=== PATIENT | female | born 1980 | race Caucasian/White ===

== ENCOUNTER 2017-07-08 03:56 | Inpatient (IN) | payer MEDICAID ==
[2017-07-08 13:06] LABS: Hematocrit 40 % (35-47); Hemoglobin 14.1 g/dl (12.0-16.0); Mean Corpuscular HGB Conc 35 g/dl (31-36); Mean Corpuscular Hemoglobin 31 pg (27-31); Mean Corpuscular Volume 90 fL (80-97); Mean Platelet Volume 9 um3 (7.4-10.4); Red Blood Count 4.49 10^6/ul (4.0-5.4); Red Cell Distribution Width 13 % (10.5-15); White Blood Count 16.1 10^3/ul (3.5-10.8)
[2017-07-08] MEDS ORDERED: Oxytocin in LR* 20 UNITS/1,000 ML BAG IVPB ONE (14:22)
[2017-07-08] MEDS ORDERED: Dibucaine 1% 28.35 GM TUBE PR PRN (15:08)
[2017-07-08] MEDS ORDERED: Misoprostol TAB* 200 MCG PR ONE (15:08)
[2017-07-08] MEDS ORDERED: RHO D Immune Globulin (HUMAN)* 300 MCG = 1,500 I.U. INJ IM ONE (15:08)
[2017-07-08] MEDS ORDERED: Glycerin ADULT SUPP PR PRN (15:08)
[2017-07-08] MEDS ORDERED: Acetaminophen TAB* 325 MG PO PRN (15:08)
[2017-07-08] MEDS ORDERED: Tetan/Diph/Pertus SYR(Tdap)* 0.5 ML SYR(BOOSTRIX) use SYR IM ONE (15:08)
[2017-07-08] MEDS ORDERED: Witch Hazel PAD* JAR TOPICAL PRN (15:08)
[2017-07-08] MEDS ORDERED: Oxytocin in LR* 20 UNITS/1,000 ML BAG IVPB SCH (16:00)
[2017-07-08] MEDS ORDERED: Simethicone TAB* 80 MG TAB.CHEW PO SCH (17:30)
[2017-07-08] MEDS: Ibuprofen TAB* 600 MG PO PRN (18:41)
[2017-07-08] MEDS: Docusate CAP* 100 MG PO SCH (20:37)
[2017-07-09] MEDS: Ibuprofen TAB* 600 MG PO PRN ×3 (06:43→20:48)
[2017-07-09 08:24] LABS: Hematocrit 28 % (35-47); Hemoglobin 9.6 g/dl (12.0-16.0); Mean Corpuscular HGB Conc 35 g/dl (31-36); Mean Corpuscular Hemoglobin 32 pg (27-31); Mean Corpuscular Volume 91 fL (80-97); Mean Platelet Volume 9 um3 (7.4-10.4); Red Blood Count 3.02 10^6/ul (4.0-5.4); Red Cell Distribution Width 13 % (10.5-15); White Blood Count 19.5 10^3/ul (3.5-10.8)
[2017-07-09] MEDS: Ferrous Gluconate TAB* 324 MG TAB PO SCH ×2 (09:09→20:48)
[2017-07-09] MEDS: Docusate CAP* 100 MG PO SCH ×3 (09:10→20:48)
[2017-07-10 09:21] VITALS: BP 110/62
[2017-07-10] MEDS: Docusate CAP* 100 MG PO SCH (09:45)
[2017-07-10] MEDS: Ferrous Gluconate TAB* 324 MG TAB PO SCH (09:45)
[2017-07-10] MEDS: Ibuprofen TAB* 600 MG PO PRN (09:49)
--- NOTE | 2017-07-10 12:15 | PTEDU ---
Patient Name: BUNNY SORENSON BUNNY SORENSON selected video: Follow Me Mum: [facility] [employer] Successful to view on 017 at 12:12:42 PM [id number]
== END 2017-07-10 13:44 | disposition home or self-care (01) | DRG 560 ==
LOC: MCHOBOUT 03:56 → MCHOB 07:14
PROVIDERS: ADMIT Midwife; ATTEND Midwife
PROC: 10E0XZZ Delivery of Products of Conception, External Approach (ICD-10-PCS; principal; 2017-07-08)
PROC: 10907ZC Drainage of Amniotic Fluid, Therapeutic from Products of Conception, Via Natural or Artificial Opening (ICD-10-PCS; 2017-07-08)
PROC: 0KQM0ZZ Repair Perineum Muscle, Open Approach (ICD-10-PCS; 2017-07-08)
DX: O48.0 Post-term pregnancy (principal); O72.1 Other immediate postpartum hemorrhage; D62 Acute posthemorrhagic anemia; O70.1 Second degree perineal laceration during delivery; O90.81 Anemia of the puerperium; Z3A.41 41 weeks gestation of pregnancy; Z37.0 Single live birth
CPT/HCPCS: 36415; 85025; 85461; 86850; 86870; 86880; 86900; 86901; A9270-GY; J2790

== ENCOUNTER 2019-05-08 21:02 | Inpatient (IN) | payer OTHER ==
--- NOTE | 2019-05-08 22:42 | HP ---
General Information - Reason for Visit PROM followed by active labor - General Information Maternal Age: 38 Grav: 2 Para: 1 SAB: 0 IEA: 0 Estimated Due Date: 05/06/19 Determined By: LMP Maternal Blood Type and Rh: O Negative - Results this Serology/RPR Result: Non-Reactive Rubella Result: Immune HBsAg Result: Negative HIV Result: Negative GBS Culture Result: Negative Past Medical History Delivery History: Hx Complicated Vaginal Delivery - hx PPH Pertinent Past Medical History: Non-Contributory Pertinent Past Surgical History: See Records - Left axilla lymph node removal Pertinent Family History: Non-Contributory - Antepartal Records Antepartal Records: Reviewed, Complicated by: - AMA, mild pyelectasis , Rh negative Review of Systems Constitutional: Uncomfortable CV Complaint: No Respiratory: Shortness of Breath: No Gastrointestinal: Normal Bowel Movement, Nausea, Vomiting Genitourinary: Leaking Fluid, No Dysuria, No Bleeding Musculoskeletal: No Epigastric Pain, Contractions Neurological: No Headache, No Visual Changes Movement: Normal Exam Allergies/Adverse Reactions: Allergies No Known Allergies Allergy (Verified 05/08/19 21:51) T-98.5, P-89, R-16, BP-114/75, O2-99% - Measurements Height: 5 ft 4 in Weight: 77.111 kg Weight in lbs: 170.237437 Body Mass Index (BMI): 29.2 Pre- Weight: 62.596 kg Weight Gained This : 32 lbs and 0 ozs - Exam Breast: Breast Exam Deferred CVA: No CVA Tenderness Extremities: No Edema Heart: Normal Rhythm/Heart Sounds HEENT: No Significant Findings Lungs: Clear Bilaterally Rectal: Rectal Exam Deferred Reflexes: DTR 2+ Thyroid: No Thyromegaly - Abdominal Exam Abdomen Exam: Non-Tender, Fundal Height Consistent with Dates - Ultrasound/Biophysical Profile Ultrasound Status: Not Done Targeted Exam Findings See L&D Outpatient Visit Provider Note for Findings: Yes Estimated Weight: 8# Cervical Exam: 4cm Effacement: 100% Station: +1 Presenting Part: Vertex Membrane Status: SROM Amniotic Fluid Evaluation: Gross Rupture Bleeding/Discharge: None EFM Findings - External Monitor Findings Baseline Heart Rate: 130 External Monitor Findings: Accelerations Present, No Pattern of Variable or Late Decelerations, Variability Moderate, Baseline Stable Contractions: Regular, Moderate, 45-90 Seconds Assessment/Plan - Assessment 38 year old at 40 2/7 weeks gestation with PROM, now in active labor, no evidence of acidemia, no evidence of chorioamnionitis - Plan Plan: Admit - Anticipate Vaginal Delivery - Date/Time of Admission Date of Admission: 05/08/19 Time of Admission: 21:17
[2019-05-09] MEDS ORDERED: Acetaminophen TAB* 325 MG PO PRN (00:33)
[2019-05-09] MEDS ORDERED: Glycerin ADULT SUPP PR PRN (00:33)
[2019-05-09] MEDS ORDERED: Witch Hazel PAD* JAR TOPICAL PRN (00:33)
[2019-05-09] MEDS ORDERED: OXYTOCIN* 10 UNITS/ML 1 ML VIAL IM ONE (00:33)
[2019-05-09] MEDS ORDERED: Dibucaine 1% 28.35 GM TUBE PR PRN (00:33)
[2019-05-09] MEDS ORDERED: Lidocaine 1% INJ* 10 MG/ML 30 ML SDV ONE (01:19)
[2019-05-09] MEDS: Ibuprofen TAB* 600 MG PO PRN ×3 (01:37→20:15)
--- NOTE | 2019-05-09 08:09 | PROCNOTE ---
[facility] OB: Delivery Note - Delivery A Date of : 05/08/19 Time of : 22:39 [place] Sex: Female Weight at : 3.62 kg Score 1 Minute: 8 Score 5 Minutes: 9 Gestational Age in Weeks and Days at Delivery: 40 Weeks and 2 Days Delivery Method: Spontaneous Vaginal Labor: Spontaneous Amniotic Fluid: Clear Estimated Blood Loss: 300 Anesthesia/Analgesia: None - Nursery Level of Nursery: Regular/Bedside - Perineum Perineal Injury: 1st Degree Perineal Repair: By Delivering Practioner - Events Delivery Events of Note: Pitocin Only After Delivery - Additional Delivery Notes Additional Delivery Notes: Pt experienced SROM earlier in the day, was seen as outpatient and discharged home per her preference to await active labor with a plan to [place] [facility] [place] if no onset active labor prior. Pt returned to [facility] [place] at 2100 at which time labor began to become more active. Pt progressed rapidly, using position changes , counterpressure and breathing techniques for pain relief. Pt soon experienced urge to push and this technical publications writer was called to bedside. Pt began to push spontaneously in hands and knees position. Head soon birthed, but shoulders did not easily follow. Pt coached to turn onto her back and shoulders then followed with gentle downward pressure. Pt's assisted to bring the baby from the perineum to pt's abdomen. with vigorous cry and HR>100. After cord pulsation ceased cord clamped x2 and cut by 's father. Pt's bleeding initially minimal and she declined prophylactic pitocin. However, bleeding then became more brisk and pt agreed to IM Pitocin, after which bleeding remained minimal. Examination of the perineum revealed first degree laceration. Repaired with 3-0 Rapide suture resulting in good hemostasis and tissue approximation. Pt and infant stable at this time, anticipate normal course.
[2019-05-09] MEDS: Docusate CAP* 100 MG PO SCH ×3 (11:30→20:16)
[2019-05-10 06:43] LABS: ABS Basophils 0.1 10^3/ul (0-0.2); ABS Eosinophils 0.2 10^3/ul (0-0.6); ABS Lymphocytes 2.4 10^3/ul (1.0-4.8); ABS Monocytes 0.5 10^3/ul (0-0.8); ABS Neutrophils 6.3 10^3/ul (1.5-7.7); Eosinophil % 2.1 %; Hematocrit 34 % (35-47); Hemoglobin 12.4 g/dL (12.0-16.0); Lymphocyte % 25.6 %; Mean Corpuscular HGB Conc 37 g/dL (31-36); Mean Corpuscular Hemoglobin 34 pg (27-31); Mean Corpuscular Volume 92 fL (80-97); Mean Platelet Volume 7.8 fL (7.4-10.4); Nucleated Red Blood Cells % 0.1; Platelet Count 186 10^3/uL (150-450); Red Blood Count 3.67 10^6 /uL (3.70-4.87); Red Cell Distribution Width 14 % (10-15); White Blood Count 9.5 10^3/uL (3.5-10.8)
[2019-05-10 08:14] VITALS: BP 98/58
[2019-05-10] MEDS ORDERED: Ferrous Gluconate TAB* 324 MG TAB PO SCH (09:00)
[2019-05-10] MEDS ORDERED: RHO D Immune Globulin (HUMAN)* 300 MCG = 1,500 I.U. INJ IM ONE (09:08)
[2019-05-10] MEDS: Docusate CAP* 100 MG PO SCH (09:46)
[2019-05-10] MEDS: Ibuprofen TAB* 600 MG PO PRN (10:58)
== END 2019-05-10 13:34 | disposition home or self-care (01) | DRG 560 ==
LOC: MCHOBOUT 21:02 → MCHOB 21:17
PROVIDERS: ADMIT Midwife; ATTEND Midwife
PROC: 10E0XZZ Delivery of Products of Conception, External Approach (ICD-10-PCS; principal; 2019-05-08)
PROC: 4A1HXCZ Monitoring of Products of Conception, Cardiac Rate, External Approach (ICD-10-PCS; 2019-05-08)
PROC: 0HQ9XZZ Repair Perineum Skin, External Approach (ICD-10-PCS; 2019-05-08)
DX: O42.02 Full-term premature rupture of membranes, onset of labor within 24 hours of rupture (principal); N13.30 Unspecified hydronephrosis; Z37.0 Single live birth; O48.0 Post-term pregnancy; O70.0 First degree perineal laceration during delivery; O99.89 Other specified diseases and conditions complicating pregnancy, childbirth and the puerperium; Z3A.40 40 weeks gestation of pregnancy; Z67.41 Type O blood, Rh negative
CPT/HCPCS: 36415; 85025; 85461; 86900; 86901; A9270-GY; J2590; J2790